=== PATIENT | female | born 1990 | race African-American/Black ===

== ENCOUNTER 2022-03-22 20:06 | Emergency (ER) | payer BC ==
[2022-03-22 21:10] LABS: Bilirubin Neg (Negative); Blood, Urine Negative (Negative); Clarity Clear (Clear); Glucose, Urine (Dipstick) Normal (Negative); Ketone, Urine Negative (Negative); Leukocyte 100 (Negative); Nitrite Negative (Negative); Protein, Urine (Dipstick) Negative (Neg-Trace); Specific Gravity, Urine 1.025 (1.002-1.036); Urobilinogen Normal mg/dL (Less than 2)
[2022-03-22 21:14] LABS: Pregnancy Test - Urine (BHCG) Negative (Negative); Pregu Control Background? CLEAR/WHITE (CLR/WHITE); Pregu Control Bar Appear? YES (CONTROL BAR); Specific Gravity 1.025 (1.002-1.036)
[2022-03-22 21:21] LABS: Bacteria/HPF None Seen HPF (None Seen); RBC/HPF 0-3 HPF (0-3); Squamous Epithelial 0-3 HPF (0-3)
== END 2022-03-22 22:10 | disposition home or self-care (01) ==
LOC: CSHERS 20:06
DX: N89.8 Other specified noninflammatory disorders of vagina (principal)
CPT/HCPCS: 81003; 81015; 81025; 99283

== ENCOUNTER 2025-10-22 18:02 | Emergency (ER) | payer BC, SELFPAY ==
[~2025-10-22 18:02] MED LIST: Iopamidol 370 76% 100 ML VIAL ONE
[2025-10-22 19:17] LABS: Pregnancy Test - Urine (BHCG) Negative (Negative); Pregu Control Background? CLEAR/WHITE (CLR/WHITE); Pregu Control Bar Appear? YES (CONTROL BAR)
[2025-10-22 19:18] LABS: Glucose, Urine (Dipstick) Normal (Negative); Leukocyte Negative (Negative); Protein, Urine (Dipstick) Negative (Neg-Trace); Specific Gravity, Urine 1.010 (1.005-1.030)
[2025-10-22 19:23] LABS: Bacteria/HPF 1+ HPF (None Seen); CAUTI Indications for Culture Pelvic or flank pain; RBC/HPF 0-3 HPF (0-3); Urine Culture Reflex No No; WBC/HPF 0-3 HPF (0-3)
[2025-10-22] MEDS ORDERED: Ketorolac Tromethamine 30 MG (1 mL) VIAL ONE (19:25)
[2025-10-22 19:31] LABS: #Basophils 0.04 10x3/uL (0.0-0.2); #Eosinophils Less than 0.03 10x3/uL (0.0-0.5); #Monocytes 0.40 10x3/uL (0.0-1.1); #Neutrophils 4.62 10x3/uL (1.5-8.4); %Basophils 0.6 % (0.0-2.0); %Eosinophils 0.1 % (0.0-6.0); %Lymphocytes 29.1 % (18.0-47.0); %Monocytes 5.6 % (0.0-10.0); %Neutrophils 64.5 % (40.0-75.0); Hematocrit 45.4 % (34.9-44.5); Hemoglobin 14.8 g/dL (12.0-15.5); Mean Corpuscular Hemoglobin 27.1 pg (27.0-33.0); Mean Corpuscular Volume 83.0 fL (81.6-98.3); Platelet Count 288 10x3/uL (150-450); Red Blood Cell (RBC) Count 5.47 10x6/uL (3.90-5.03); White Blood Cell (WBC) Count 7.16 10x3/uL (3.5-10.5)
[2025-10-22 19:48] LABS: ALT (SGPT) 17 U/L (Less than 34); AST (SGOT) 22 U/L (11-34); Albumin 4.6 g/dL (3.1-4.5); Alkaline Phosphatase 83 U/L (40-110); Anion Gap 15 mmol/L (10-20); BUN (Urea Nitrogen) 12 mg/dL (7.0-18.7); Bilirubin, Total 0.7 mg/dL (0.3-1.2); Calc. Creatinine Clearance 0 mL/min (70-130); Calcium 10.3 mg/dL (7.8-10.44); Carbon Dioxide 23 mmol/L (22-29); Chloride 103 mmol/L (98-107); Globulin 4.0 g/dL (2.4-3.5); Glucose 88 mg/dL (70-105); Lipase 13 U/L (8-78); Potassium 3.3 mmol/L (3.5-5.1); Sodium 138 mmol/L (136-145)
[2025-10-22] MEDS ORDERED: cefTRIAXone (ROCEPHIN) 500 MG VIAL ONE (20:50)
[2025-10-22 22:20] LABS: Anion Gap 17 mmol/L (10-20); BUN (Urea Nitrogen) 11 mg/dL (7.0-18.7); CK (CPK) 124 U/L (29-168); Calc. Creatinine Clearance 0 mL/min (70-130); Calcium 9.2 mg/dL (7.8-10.44); Carbon Dioxide 18 mmol/L (22-29); Chloride 105 mmol/L (98-107); Glucose 79 mg/dL (70-105); Potassium 3.8 mmol/L (3.5-5.1); Sodium 136 mmol/L (136-145)
[2025-10-23 14:09] LABS: Chlamydia by PCR, Vaginal Swab Not Detected (NotDetected); GC by PCR, Vaginal Swab Not Detected (NotDetected)
== END 2025-10-22 22:45 | disposition home or self-care (01) ==
LOC: CSHERS 18:02
DX: N39.0 Urinary tract infection, site not specified (principal); M54.9 Dorsalgia, unspecified; E87.6 Hypokalemia
CPT/HCPCS: 36415; 74177; 80053; 81001; 81025; 82550; 83605; 83690; 85025; 87040; 87077; 87086; 87186; 87480; 87491; 87510; 87591; 87660; 96372; 96374; J0696; J1885; Q9967